=== PATIENT | male | born 1995 | race African-American/Black ===

== ENCOUNTER 2019-06-01 20:53 | Emergency (ER) | payer OTHER ==
[2019-06-01 21:01] VITALS: TEMP 98.6; BMI 23.7
--- NOTE | 2019-06-01 22:40 | PDOC ---
History of Present Illness - General Chief Complaint: Pain Stated Complaint: ABD PAIN Time Seen by Provider: 06/01/19 22:39 - History of Present Illness Initial Comments: 06/02/19 00:46 23 year old man with a history of aortic insufficiency, anemia and depression ( recently started on Welbutrin) who presents with 2 days of generalized abdominal pain and some nausea and constipation for 3 days. The patient reports that initially his pain was generalized but now is L sided. He is able to have bowel movements but with significant straining. He reports his abdominal pain had improved in the past with Tylenol.The patient's mother also has concern about the increase in Wellbutrin that he had recently and reports that sometimes he seems shaky. The patient denies any fevers, recent illness, chest pain, shortness of breath or problems with urination. The patient has no other complaints at this time ROS GENERAL/CONSTITUTIONAL: No fever or chills. No weakness. HEAD, EYES, EARS, NOSE AND THROAT: No sore throat. CARDIOVASCULAR: No chest pain or shortness of breath RESPIRATORY: No cough, wheezing, or hemoptysis. GASTROINTESTINAL: + nausea, No vomiting, diarrhea, + constipation. GENITOURINARY: No dysuria, frequency, or change in urination. MUSCULOSKELETAL: No joint or muscle swelling or pain. No neck or back pain. SKIN: No rash NEUROLOGIC: No headache, vertigo, loss of consciousness, or change in strength/ sensation. ENDOCRINE: No increased thirst. No abnormal weight change PE GENERAL: Awake, alert, and fully oriented, in no acute distress HEAD: No signs of trauma, normocephalic, atraumatic EYES: EOMI, sclera anicteric, conjunctiva clear ENT: oropharynx clear without exudates. Moist mucosa NECK: Normal ROM, supple LUNGS: No distress, speaks full sentences, clear to auscultation bilaterally HEART: Regular rate and rhythm, normal S1 and S2, no murmurs, rubs or gallops, peripheral pulses normal and equal bilaterally. ABDOMEN: Soft, + slight tenderness to LLQ palpation, normoactive bowel sounds. No guarding, no rebound. No masses EXTREMITIES : Normal inspection, Normal range of motion, no edema. No clubbing or cyanosis. NEUROLOGICAL: Cranial nerves II through XII grossly intact. Normal speech, normal gait, no focal sensorimotor deficits SKIN: Warm, Dry, normal turgor, no rashes or lesions noted MDM DDX including but not limited to: constipation vs ibs r/o obstruction ED Course: Will give lactulose, tylenol and XR abd to r/o signs of obstruction Call placed to patient's psychiatrist, Dr. Smith, but multiple calls did not reach her. Mother is happy to follow up outpatient labs wnl abd XR with no acute pathology patient feels pain has improved would like to go home and follow up oupatient with PCP recommended miralax, gi referral and return precautions Alisa Sibley, PGY2 Emergency Medicine Past History - Past Medical History Allergies/Adverse Reactions: Allergies Allergy/AdvReac Type Severity Reaction Status Date / Time Gadolinium-Containing Allergy Verified 06/01/19 21:01 Contrast Medi Home Medications: Ambulatory Orders Polyethylene Glycol 3350 [Miralax (For Bowel Prep) -] 17 gm PO DAILY #1 bottle 06/02/19 Anemia: Yes Cardiac Disorders: Yes (aortic regurgitation) COPD: No - Psycho Social/Smoking Cessation Hx Smoking History: Current every day smoker Information on smoking cessation initiated: No *Physical Exam - Vital Signs Last Vital Signs Temp Pulse Resp BP Pulse Ox 98.6 F 137 H 18 176/114 H 97 06/01/19 20:57 06/01/19 20:57 06/01/19 20:57 06/01/19 20:57 06/01/19 20:57 ED Treatment Course - LABORATORY CBC & Chemistry Diagram: 06/01/19 23:30 06/01/19 23:30 Discharge - Discharge Information Problems reviewed: Yes Clinical Impression/Diagnosis: Constipation, Abdominal pain Condition: Stable Disposition: HOME - Admission No - Follow up/Referral Referrals: ON STAFF,NOT [Primary Care Provider] - Kip Strong MD [Staff Physician] - - Patient Discharge Instructions Patient Printed Discharge Instructions: DI for Constipation, DI for Abdominal Pain-Adult Additional Instructions: You were seen in the ED for complaints of constipation and abdominal pain In the ED you were evaluated with labwork and XR Your results were unremarkable and you showed improvement of symptoms There does not appear to be an acute need for immediate hospitalization. You are advised to follow up with your Primary Care Physician within 1 week. You were given a referral to GI specialty and you should follow up within 1 week / You were given a prescription for Miralax which should be taken as prescribed Return to the ED immediately if you experience worsening abdominal pain, diarrhea, vomiting, nausea, blood in stool or vomit or fevers. - Post Discharge Activity
[2019-06-01] MEDS ORDERED: ACETAMINOPHEN 325 MG TABLET (FP) PO ONE (23:09)
[2019-06-01 23:13] VITALS: BP 139/103; PULSE 116
[2019-06-01] MEDS ORDERED: LACTULOSE 20 GM/30 ML UDC (FOR ORAL USE ONLY) PO ONE (23:13)
[2019-06-01] MEDS ORDERED: LACTULOSE 20 GM/30 ML UDC (FOR ORAL USE ONLY) ONE (23:15)
[2019-06-01] MEDS ORDERED: ACETAMINOPHEN 325 MG TABLET (FP) ONE (23:15)
[2019-06-01 23:38] LABS: BASO % 0.7 % (0-2.0); EOS % 1.8 % (0-4.5); HEMOGLOBIN 15.2 GM/dL (11.7-16.9); LYMPH % 29.1 % (8-40); MCH 34.1 pg (25.7-33.7); MCHC 33.8 g/dl (32.0-35.9); MEAN CELL VOLUME 100.9 fl (80-96); MEAN PLT VOLUME 6.8 fl (7.5-11.1); NEUT % 61.4 % (42.8-82.8); PLATELET COUNT 243 K/MM3 (134-434); RBC 4.46 M/mm3 (4.00-5.60); RDW 12.1 % (11.9-15.9)
[2019-06-02 00:05] LABS: ALBUMIN 4.8 g/dl (3.4-5.0); BILIRUBIN,TOTAL 0.8 mg/dL (0.2-1); BLOOD UREA NITROGEN 17.2 mg/dL (7-18); CALCIUM 9.6 mg/dL (8.5-10.1); CREATININE 1.3 mg/dL (0.55-1.3); POTASSIUM 4.5 mmol/L (3.5-5.1)
--- NOTE | 2019-06-02 01:25 | PDOC ---
Documentation entered by Kerry Garnica SCRIBE, acting as scribe for Emerald Weinstein MD. Emerald Weinstein MD: This documentation has been prepared by the Nahun short Adrianna, SCRIBE, under my direction and personally reviewed by me in its entirety. I confirm that the documentation accurately reflects all work, treatment, procedures, and medical decision making performed by me. Attending Attestation - Resident Resident Name: Alisa Sibley - ED Attending Attestation I have performed the following: I have examined & evaluated the patient, The case was reviewed & discussed with the resident, I agree w/resident's findings & plan, Exceptions are as noted - HPI HPI: The patient is a 23 year old male, with a significant PMH of anemia, aortic regurgitation, and depression (on wellbutrin, with recent dosage increase) who presents to the ED for evaluation abdominal pain for 3 days. Patient complains of diffuse abdominal pain for the past 3 days, with associated nausea. He rates his pain as an 8/10, and endorses relief with taking Tylenol. Patient reports he has been constipated at this time, noting he has been able to pass small bowel but has to really strain to do so. Patient notes the abdominal pain is more left-sided today, and patient is concerned he may have a SBO. Allergies: Gadolinium-Containing Contrast Media Surgical History: None reported Social History: Current everyday smoker PCP: NOS - Physicial Exam PE: GENERAL: The patient is in no acute distress. ENT: Ears normal, nares patent, oropharynx clear without exudates. Moist mucous membranes. NECK: Normal range of motion, supple, no nuchal rigidity LUNGS: Breath sounds equal, clear to auscultation bilaterally. No wheezes, and no crackles. HEART: Regular rate and rhythm, normal S1 and S2 without murmur, rub or gallop. ABDOMEN: +LLQ tenderness to palpation. Soft, normoactive bowel sounds. No guarding, no rebound. No masses palpable. BACK: No flank or CVA tenderness. EXTREMITIES: Normal range of motion, no edema. NEUROLOGICAL: Cranial nerves II through XII grossly intact. Normal speech. No focal neurological deficits. SKIN: Warm, Dry, normal turgor, no rashes or lesions noted. - Medical Decision Making 06/02/19 01:23 23 yo M presenting with a complaint of abdominal pain No fevers or chills (+) constipation No diarrhea Decreased po inake Laboratory Tests 06/01/19 06/01/19 06/01/19 23:30 23:30 23:30 Hgb 15.2 Hct 45.0 MCV 100.9 H MCH 34.1 H BUN 17.2 Creatinine 1.3 Lipase 126 06/02/19 01:24 Pt will require imaging of abdomen and pelvis Abd x ray : constipation Will ask pt to start a bowel regimen Return to the ER for any other concerns or complaints
== END 2019-06-02 02:18 | disposition home or self-care (01) ==
LOC: JER 20:53
DX: K59.00 Constipation, unspecified (principal); F17.210 Nicotine dependence, cigarettes, uncomplicated; Z91.041 Radiographic dye allergy status
CPT/HCPCS: 36415; 74019-TC-FY; 80053; 83690; 85025; 99283-25